=== PATIENT | female | born 1970 | race Caucasian/White ===

== ENCOUNTER 2020-11-24 10:01 | Outpatient (CLI) | payer MEDICARE, SELFPAY ==
--- NOTE | 2020-11-24 10:09 | MM_ITS ---
WS: [id number] SCREENING DIGITAL MAMMOGRAM WITH CAD HISTORY: SCREENING COMPARISON: 09/10/2012 Bilateral CC and MLO views submitted. Computer aided detection analyzed. Breast composition: There are scattered areas of fibroglandular density. Tiny spicule a 6 mm nodule i n the central RIGHT breast at a middle depth. Margins are slightly irregular. This is new since the p rior study. Otherwise no suspicious masses or calcifications. MM/[place] [id number] IMPRESSION: BI-RADS: 0-Incomplete: Need additional imaging evaluation FOLLOW UP: Need Additional Imaging RIGHT breast: Spot compression views (CC and MLO). True ML. Ultrasound to follo w if abnormality persists.
== END 2020-11-24 10:02 | disposition home or self-care (01) ==
LOC: RADSHAW 10:07
PROVIDERS: PCP Internal Medicine; Visit Provider Internal Medicine
DX: Z12.31 Encounter for screening mammogram for malignant neoplasm of breast (principal)
CPT/HCPCS: 77067

== ENCOUNTER 2021-01-19 07:43 | Outpatient (CLI) | payer MEDICARE, SELFPAY ==
--- NOTE | 2021-01-19 07:50 | US_ITS ---
WS: [id number] ADDITIONAL VIEWS RIGHT BREAST RIGHT breast ultrasound, limited HISTORY: INCONCLUSIVE MAMMO;RT NODULE COMPARISON: 11/24/2020 and 09/10/2012 Compression views right CC and MLO projection. True ML also submitted. The asymmetry posterior to the nipple seen best on the CC projection persists but nearly completely resolves. This is not definitel y visualized on the lateral projection but probably at 12:00. Ultrasound to follow. RIGHT breast ultrasound, limited. Ultrasound is directed along with midline of the breast above and below the nipple. No masses are antonella ntified. No shadowing. US/US breast RT limited* [id number] IMPRESSION: BI-RADS: 2-Benign FOLLOW-UP: 1 Year Follow-up Asymmetry posterior to the nipple does not persist as a mass. No abnormality on ultrasound.
== END 2021-01-19 07:44 | disposition home or self-care (01) ==
LOC: RADSHAW 07:45
PROVIDERS: PCP Internal Medicine; Visit Provider Internal Medicine
DX: R92.2 Inconclusive mammogram (principal); N64.89 Other specified disorders of breast
CPT/HCPCS: 76642; 77065

== ENCOUNTER 2021-03-06 14:44 | Outpatient (CLI) | payer MEDICARE, SELFPAY ==
--- NOTE | 2021-03-06 15:15 | MR_ITS ---
WS: [id number] MRI RIGHT SHOULDER NONCONTRAST TECHNIQUE: Sagittal T2, coronal T1, T2 and proton density imaging. Axial gradient PDE imaging. CLINICAL INFORMATION: INTERNAL DERANGEMENT OF R SHOULDER COMPARISON: None. FINDINGS: Moderate degenerative arthritis AC joint with hypertrophic spurring and edema. Mild downsloping acrom ion. Small amount of subacromial/subdeltoid fluid. Small high-grade tear involving the distal suprasp inatus with an additional tear at the insertion. No tendon retraction. Chronic thinning of the distal supraspinatus tendon. Associated tendinopathy. Tiny intrasubstance tear involving the infraspinatus. Normal teres minor. Normal subscapularis tendon . Normal biceps tendon in the bicipital groove. Tendinopathy involving the intra-articular biceps tendo n with T2 signal abnormality. Glenoid labrum appears grossly normal. Normal bone marrow signal in the humerus and glenoid. MR/MR shoulder RT wo con* [id number] IMPRESSION: 1. Moderate degenerative arthritis at the AC joint with hypertrophic spurring and edema. 2. Small high-grade tear involving the distal supraspinatus with tendinopathy and chronic thinning of the supraspinatus tendon distally. 3. Small intrasubstance tear involving the infraspinatus tendon distally. 4. Normal biceps tendon in the bicipital groove. 5. Tendinopathy intra-articular biceps tendon. 6. Glenoid labrum appears grossly normal.
== END 2021-03-06 14:45 | disposition home or self-care (01) ==
PROVIDERS: PCP Internal Medicine; Visit Provider Internal Medicine
DX: M24.811 Other specific joint derangements of right shoulder, not elsewhere classified (principal); M19.011 Primary osteoarthritis, right shoulder; M75.101 Unspecified rotator cuff tear or rupture of right shoulder, not specified as traumatic; S46.811A Strain of other muscles, fascia and tendons at shoulder and upper arm level, right arm, initial encounter; X58.XXXA Exposure to other specified factors, initial encounter
CPT/HCPCS: 73221

== ENCOUNTER → 2021-12-27 09:48 | Outpatient (BNVA) | payer MEDICARE, SELFPAY | PROVIDERS: PCP Internal Medicine; Referring Provider Internal Medicine; Visit Provider Internal Medicine Cardiovascular Disease | DX: R07.9 Chest pain, unspecified (principal); I10 Essential (primary) hypertension; Z87.891 Personal history of nicotine dependence | CPT/HCPCS: 93005; 99203; 99204 ==

== ENCOUNTER 2022-01-02 07:24 | Outpatient (CLI) | payer MEDICARE, SELFPAY ==
--- NOTE | 2022-01-02 | ECG_ITS ---
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 Interpretive Statements NAME OF STUDY: EXERCISE SESTAMIBI STRESS TEST INDICATION: Chest Pain Baseline blood pressure of 119/77 mm Hg, heart rate 77 beats per minute and oxygen saturation of 98%. EKG showed normal sinus rhythm, normal axis with normal ST-Ts. The patient exercised for 3 minutes 30 seconds on a standard Johnson protocol. Patient attained a maximum heart rate of 151 beats per minute(89% of the maximum predicted heart rate) with a blood pressure at the peak exercise of 154/62 mm Hg and oxygen saturation of 80%. The EKG at the peak exercise revealed sinus tachycardia with no significant ST-T wave changes. Patient did not have any chest pain or any significant arrhythmis with the exercise. The study was terminated due to exertional shortness of breath. During the recovery phase, there were no new changes. Blood pressure at the end of the recovery phase was 162/79 mm Hg with a heart rate of 108 beats per minute and oxygen saturation 94%. CONCLUSION: 1. Normal EKG response to treadmill exercise. 2. No exercise-induced chest pain or cardiac arrhythmia. 3. Decreased exercise tolerance, attained a maximum of 4.6 METs. Patient exercised for 3 minutes 30 seconds. 4. Baseline normal blood pressure with normal response to exercise. Oxygen saturation at peak exercise of 80%. 5. Perfusion scan will be documented separately. Electronically Signed On 01-05-2022 14:24:10 CDT by Thalia Rios M.D. [id number]
[2022-01-02 07:55] VITALS: BMI 37.8
--- NOTE | 2022-01-02 07:59 | NMCV_ITS ---
NM ching perf SPECT r/s* [id number] Netta Keene Age: 51 Gender: F : 1970 Exam Date: 01/02/2022 07:59 Ordering Phys: Jean-Claude Harkins DO Technologist: BOB Orozco Exam Location: [facility] Indications: CHEST PAIN STRESS TEST [facility] IMAGE PROTOCOL Rest/Stress 1 Exercise Day Radiopharmaceutical Dose (mCi) Administration Site Administered by Rest: Tc-99m 10.6 IV BOB Massey Sestamibi Stress:Tc-99m 33.0 IV BOB Massey Sestamibi Rest: 02-Jan-2022 60 Discovery 630 Stress: 02-Jan-2022 15 Discovery 630 Radiopharmaceutical was injected at 85 % maximum heart rate. Supine position only as patient was unable to lay prone. SPECT RESULTS Technical Quality: Excellent Raw Data Analysis: Normal Image Corrections: No attenuation or motion correction applied Summed Stress Score: 0 Summed Rest Score: 2 Summed Difference Score: 0 PERFUSION FINDINGS SPECT images demonstrate homogeneous tracer distribution throughout the myocardium. FUNCTIONAL RESULTS (calculated via Gated SPECT) Stress Image LV EF (%): 96 Stress EDV (mL):52 TID: 0.89 Stress ESV (mL):2 FUNCTIONAL FINDINGS: The left ventricle is normal in size. Transient Ischemia Dilatation of 0.89. The left ventricular ejection fraction is hyperdynamic with a value of 96% (likely overestimated due to small left ventricle cavity size). There is hyperdynamic left ventricular wall thickening. IMPRESSIONS 1. Myocardial perfusion imaging is normal. 2. Overall left ventricular systolic function is hyperdynamic without regional wall motion abnormalities, LVEF=96%. 3. Decreased exercise tolerance. Normal EKG response to treadmill exercise. 4. No prior similar studies to compare. Thalia Rios MD (Electronically Signed) Final Date: 05 January 2022 14:27 S
[2022-01-02 10:37] VITALS: BP 125/65; PULSE 83
== END 2022-01-02 07:25 | disposition home or self-care (01) ==
PROVIDERS: PCP Internal Medicine; Visit Provider Internal Medicine
DX: R07.9 Chest pain, unspecified (principal)
CPT/HCPCS: 78452; 93017; A9500

== ENCOUNTER 2022-02-14 12:38 | Emergency (ER) | payer MEDICARE, SELFPAY ==
[2022-02-14] VITALS (27 sets, daily range): BP systolic 104–145; BP diastolic 61–84; PULSE 75–101; RESP 12–29; TEMP 36.3; O2SAT 90–96; BMI 37.8
--- NOTE | 2022-02-14 12:46 | ECG_ITS ---
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 Measurements Intervals [place] Rate: 97 P: 48 TN: 145 QRS: 15 QRSD: 73 T: 73 QT: 338 QTc: 431 Interpretive Statements SINUS RHYTHM LOW QRS VOLTAGE IN PRECORDIAL LEADS [QRS DEFLECTION < 1.0 mV IN CHEST LEADS] Compared to ECG 05/09/2018 07:36:41 Low QRS voltage now present Electronically Signed On 02-14-2022 18:04:18 CAD DETAILER by Oscar Tapia M.D. [id number] f
--- NOTE | 2022-02-14 13:41 | PC.NURSE ---
pt reports she thinks that she had a heart attack. states she had a sharp pain that radiated to her neck. states yesterday began having heartburn, today had a stabbing pain that began while wrapping [facility] presents. reports she took a nitro at home that relieved her pain.
--- NOTE | 2022-02-14 13:47 | ED_ITS ---
HPI - Chest Pain General: Chief Complaint: Chest Pain Stated Complaint: heart issues Time Seen by Provider: 02/14/22 13:39 History of Present Illness: 51-year-old female who comes in complaining of chest pain. The patient started having this off and on yesterday and then again had recurrent pain today. She describes it as a sharp pain in her midsternal area radiating up into her jaw. She states it was an 8 out of a 10 at its worst. The pain most recently came on around 1145 today. It lasted about 20 minutes and was relieved after she took a sublingual nitroglycerin. She denies pain currently. She states it did not cause her to feel short of breath, nauseated or diaphoretic. She does have a history of hypertension as well as a family history of cardiac disease. She is a non-smoker. She does stress test recently that was normal. She is also been having nominal pain. She recently had an ultrasound to evaluate that. She did try Tagamet yesterday without improvement Associated symptoms: Reports abdominal pain and nausea; Deny diaphoresis, dyspnea, fever(s), palpitations or vomiting Risk Factors: Coronary artery disease risk factors: hypertension and family history of CAD before age 50 Review of Systems Const: Denies: fever(s), chills, body aches or diaphoresis Eyes: Denies: change in vision ENMT: Denies: throat pain or nasal congestion Card: Reports: chest pain; Denies: palpitations, dyspnea on exertion, orthopnea or leg pain with exertion Resp: Denies: dyspnea or non-productive cough GI: Reports: abdominal pain and nausea; Denies: vomiting, hematemesis, diarrhea or constipation : Denies: difficulty voiding Musc: Denies: joint pain Skin/Breast: Denies: rash Neuro: Denies: headache(s) PFSH ED PFSH: Medical History (Updated 02/14/22 @ 16:27 by Cassy Hayden MD) Anxiety and depression Arthritis Fibromyalgia History of TIA (transient ischemic attack) HTN (hypertension) Surgical History S/P carpal tunnel release S/P hysterectomy S/P rotator cuff surgery Family History Mother Hypertension Myocardial infarction Diabetes Father Hypertension Stroke Sister Diabetes Social History Smoking and tobacco status: former smoker Physical Exam Const: COMMON NORMALS: no acute distress, patient oriented x3 and alert HENMT: COMMON NORMALS: normocephalic, atraumatic and moist oral mucous membranes HEAD & SCALP: normocephalic and atraumatic Eye: COMMON NORMALS: conjunctivae normal CONJUNCTIVA: Yes conjunctivae normal Neck/C-Spine: GENERAL: Yes trachea midline and No Meningeal signs present Resp: COMMON NORMALS: normal respiratory effort, No use of accessory muscles and clear to auscultation bilaterally AUSCULTATION: clear to auscultation bilaterally Cardio: COMMON NORMALS: regular rate and regular rhythm RATE: regular rate RHYTHM: regular rhythm GI: COMMON NORMALS: Normal to inspection, nondistended, normoactive bowel sounds present, Soft to palpation, non-tender and No hepatosplenomegaly present PALPATION: Yes Soft to palpation and Yes No hepatosplenomegaly present Extremity: OTHER: No edema, calves are nontender. Neuro: COMMON NORMALS: patient oriented x3 SENSORIUM/ORIENTATION: Yes alert Skin: OTHER: No rash Course ED course: Patient's been evaluated in the emergency department. She presents with chest pain, now resolved upon arrival to the ER. She had a recent negative stress test. Her EKG today is normal. Serial troponins are both normal at 6. D-dimer is negative. Her chest x-ray is unremarkable. I suspect the patient is having esophageal reflux with esophageal spasm. I do not feel that this is likely cardiac. We will place the patient on a PPI daily. Recommend she takes Prilosec daily. If given her dietary instructions. Instructed her to follow-up with her primary care doctor's nonapproved in the next 1 to 2 weeks. Vital Signs: Vital signs: Vital Signs Temperature 97.3 F L 02/14/22 12:41 Pulse Rate 82 02/14/22 15:50 Respiratory Rate 19 H 02/14/22 15:50 Blood Pressure 121/61 02/14/22 15:50 Pulse Oximetry 93 02/14/22 15:50 Oxygen Delivery Me thod 02/14/22 12:41 MDM - Chest Pain Medical Decision Making 51-year-old female with history of hypertension who presents with chest pain that she has had most of the day today. Notably, the patient had a negative stress test about 6 weeks ago. We will obtain an EKG, chest x-ray and serial cardiac enzymes. Differential Diagnosis Likely acute respiratory failure and acute myocardial infarction Lab Data I reviewed the patient's lab results. 02/14/22 13:48 02/14/22 13:48 Radiology Impressions Chest X-Ray 02/14/22 13:49 IMPRESSION: No acute cardiopulmonary abnormality identified. Laboratory Results WBC 7.0 10^3/uL (4.0-10.0) 02/14/22 13:48 RBC 4.30 10^6/uL (4.1-5.3) 02/14/22 13:48 Hgb 14.5 g/dL (11.5-15.3) 02/14/22 13:48 Hct 42.9 % (37.0-47.0) 02/14/22 13:48 MCV 99.8 fl (81-99) H 02/14/22 13:48 MCH 33.7 pg (28.0-34.0) 02/14/22 13:48 MCHC 33.8 g/dL (30.0-36.0) 02/14/22 13:48 RDW 12.3 % (12.1-15.1) 02/14/22 13:48 Plt Count 341 10^3/cmm (130-400) 02/14/22 13:48 MPV 9.0 fL (7.4-10.4) 02/14/22 13:48 Neut % (Auto) 56.6 % 02/14/22 13:48 Lymph % (Auto) 29.5 % 02/14/22 13:48 [place] % (Auto) 7.2 % 02/14/22 13:48 Eos % (Auto) 5.3 % 02/14/22 13:48 Baso % (Auto) 1.1 % 02/14/22 13:48 Neut # (Auto) 3.94 10^3/uL (1.8-7.7) 02/14/22 13:48 Lymph # (Auto) 2.1 10^3/uL (0.8-4.8) 02/14/22 13:48 [place] # (Auto) 0.5 10^3/uL (0.2-0.9) 02/14/22 13:48 Eos # (Auto) 0.4 10^3/uL (0.0-0.8) 02/14/22 13:48 Baso # (Auto) 0.1 10^3/uL (0.0-0.1) 02/14/22 13:48 Nucleated RBC % (auto) 0 % 02/14/22 13:48 Nucleated RBCs # 0.0 /100WBC 02/14/22 13:48 D-Dimer 0.32 ug/mIFEU (0-0.59) 02/14/22 13:48 Sodium 138 mmol/L (136-145) 02/14/22 13:48 Potassium 4.3 mmol/L (3.5-5.1) 02/14/22 13:48 Chloride 103 mmol/L (98-107) 02/14/22 13:48 Carbon Dioxide 26 mmol/L (22-29) 02/14/22 13:48 Anion Gap 13.3 (5-19) 02/14/22 13:48 BUN 8 mg/dL (6-20) 02/14/22 13:48 Creatinine 1.0 mg/dL (0.5-0.9) H 02/14/22 13:48 GFR Calculation 58.5 mL/min (90-130) L 02/14/22 13:48 Glucose 105 mg/dL (65-115) 02/14/22 13:48 Calculated Osmolality 285 mOsm/kg (285-295) 02/14/22 13:48 Calcium 9.7 mg/dL (8.5-10.5) 02/14/22 13:48 Total Bilirubin 0.3 mg/dL (0.15-1.2) 02/14/22 13:48 AST 25 U/L (0-32) 02/14/22 13:48 ALT 28 U/L (0-33) 02/14/22 13:48 Alkaline Phosphatase 87 U/L (35-105) 02/14/22 13:48 Troponin T Baseline 6 ng/L (0-10) 02/14/22 13:48 Troponin T 120 Minute 6.00 ng/L (0-10) 02/14/22 15:25 Delta Troponin T 0 ABS# (0-10) 02/14/22 15:25 Total Protein 7.4 g/dL (6.6-8.7) 02/14/22 13:48 Albumin 4.5 g/dL (3.5-5.2) 02/14/22 13:48 Globulin 2.9 g/dL (1.3-4.6) 02/14/22 13:48 Discharge Plan Discharge Patient Disposition: Home Clinical Impression: Chest pain, Esophageal reflux Condition: Stable Prescriptions: No Action amitriptyline 50 mg tablet 50 mg PO DAILY albuterol sulfate [Ventolin HFA] 90 mcg/actuation HFA aerosol inhaler 2 puff inhalation Q6H PRN gabapentin 300 mg capsule 300 mg PO BID losartan 50 mg tablet 50 mg PO DAILY sertraline 50 mg tablet 50 mg PO DAILY diphenhydramine HCl [Benadryl Allergy] 25 mg tablet 25 mg PO TID PRN chlorthalidone 25 mg tablet 37.5 mg PO DAILY Qty: 45 6RF Discharge Orders: Discharge ED (Routine); Ordered 02/14/22 Ordered By: Cassy Hayden Referrals: Jean-Claude Harkins DO [Primary Care Provider] - Discharge Diet: Advance as tolerated Discharge Activity: Resume usual activity Patient Instructions: Chest Pain (DC), Esophageal Spasm (ED), Opioid Safety, Pain Management Activity Restrictions/Additional Instructions: Take Prilosec daily. Do not eat or drink for at least 2 hours before you lay down to go to bed. Elevate the head of your bed. Avoid carbonated beverages. Avoid caffeine, greasy foods, spicy foods, aspirin, ibuprofen. Return if you are having increased pain. Follow-up with your primary care doctor in the next 1 to 2 weeks. Coding Level of Care Code ED Certified Shorthand Reporter for Heydi Kaur
--- NOTE | 2022-02-14 13:49 | XRR_ITS ---
PROCEDURE INFORMATION: Exam: XR Chest Exam date and time: 02/14/2022 1:55 PM Age: 51 years old Clinical indication: Pain; Angina pectoris; Additional info: Chest pain TECHNIQUE: Imaging protocol: Radiologic exam of the chest. Views: 1 view. Other technique: Frontal portable upright view of the chest. COMPARISON: CR XR chest 2V* [id number] 10/30/2021 4:06 PM FINDINGS: Tubes, catheters and devices: EKG leads are present overlying the chest. Lungs: The lungs are clear bilaterally. The pulmonary vasculature is normal. Pleural spaces: No pleural effusion. No pneumothorax. Heart/Mediastinum: The heart is normal in size and contour. Mediastinum: Stable. Bones/joints: Stable. XR/XR chest 1V portable [id number] IMPRESSION: No acute cardiopulmonary abnormality identified.
[2022-02-14 13:57] LABS: Basophils # 0.1 10^3/uL (0.0-0.1); Basophils % 1.1 %; Eosinophils # 0.4 10^3/uL (0.0-0.8); Eosinophils % 5.3 %; Hematocrit 42.9 % (37.0-47.0); Hemoglobin 14.5 g/dL (11.5-15.3); Lymphocytes # 2.1 10^3/uL (0.8-4.8); Lymphocytes % 29.5 %; Mean Corpuscular HGB Conc 33.8 g/dL (30.0-36.0); Mean Corpuscular Hemoglobin 33.7 pg (28.0-34.0); Mean Corpuscular Volume 99.8 fl (81-99); Monocytes # 0.5 10^3/uL (0.2-0.9); Monocytes % 7.2 %; Neutrophils # 3.94 10^3/uL (1.8-7.7); Neutrophils % 56.6 %; Nucleated Red Blood Cells % 0 %; Platelet Count 341 10^3/cmm (130-400); Red Cell Distribution Width 12.3 % (12.1-15.1)
[2022-02-14] MEDS: aspirin 81 mg Chew Tablet 324 MG PO (14:00)
[2022-02-14] MEDS: nitroglycerin 1 gm/inch oint Pkt 1 INCH TOPICAL (14:00)
[2022-02-14 14:18] LABS: D Dimer 0.32 ug/mIFEU (0-0.59)
[2022-02-14 14:20] LABS: Troponin(5th) Baseline 6 ng/L (0-10)
[2022-02-14 14:22] LABS: Alanine Aminotransferase 28 U/L (0-33); Albumin Level 4.5 g/dL (3.5-5.2); Alkaline Phosphatase 87 U/L (35-105); Anion Gap 13.3 (5-19); Aspartate Amino Transferase 25 U/L (0-32); Blood Urea Nitrogen 8 mg/dL (6-20); Calcium 9.7 mg/dL (8.5-10.5); Carbon Dioxide 26 mmol/L (22-29); Chloride 103 mmol/L (98-107); Globulin 2.9 g/dL (1.3-4.6); Glomerular Filtration Rate 58.5 mL/min (90-130); Glucose 105 mg/dL (65-115); Osmolality Calculated 285 mOsm/kg (285-295); Potassium 4.3 mmol/L (3.5-5.1); Sodium 138 mmol/L (136-145); Total Bilirubin 0.3 mg/dL (0.15-1.2); Total Protein 7.4 g/dL (6.6-8.7)
--- NOTE | 2022-02-14 15:49 | ECG_ITS ---
[facility] Test Date: 2022-02-14 Pat Name: Netta Keene Department: Room: Gender: Female Studio Model: : 1970 Requested By: Cassy Hayden Order Number: [id number] Yair MD: Oscar Tapia M.D. Measurements Intervals [place] Rate: 76 P: 49 WI: 163 QRS: 18 QRSD: 64 T: 88 QT: 370 QTc: 418 Interpretive Statements SINUS RHYTHM NONSPECIFIC T-WAVE ABNORMALITY Compared to ECG 02/14/2022 12:45:34 T-wave abnormality now present Electronically Signed On 02-14-2022 18:05:56 MACHINE CUTTER by Oscar Tapia M.D. [email or web address] [email or web address] Photo Stories/store/[id number]
[2022-02-14 16:10] LABS: Troponin 5 2HR Delta 0 ABS# (0-10)
== END 2022-02-14 16:44 | disposition home or self-care (01) ==
PROVIDERS: Emergency Provider Emergency Medicine; PCP Internal Medicine
DX: R07.9 Chest pain, unspecified (principal); K21.9 Gastro-esophageal reflux disease without esophagitis; I10 Essential (primary) hypertension; Z86.73 Personal history of transient ischemic attack (TIA), and cerebral infarction without residual deficits; Z87.891 Personal history of nicotine dependence
CPT/HCPCS: 36415; 71045; 80053; 84484; 85025; 85378; 93005; 99285

== ENCOUNTER → 2022-04-10 10:19 | Outpatient (BNVA) | payer OTHER, SELFPAY | PROVIDERS: PCP Internal Medicine; Visit Provider Anesthesiology Pain Medicine | DX: M54.16 Radiculopathy, lumbar region (principal) | CPT/HCPCS: 72110 ==

== ENCOUNTER 2024-08-29 20:07 | Inpatient (IN) | payer MEDICARE, SELFPAY ==
--- NOTE | 2024-08-29 20:10 | ECG_ITS ---
[facility] Test Date: 2024-08-29 Pat Name: Netta Keene Department: Room: Gender: Female Superintendent Production: : 1970 Requested By: Heather Almaguer Order Number: [id number] Mazariegos MD: Tk Guillen M.D. Measurements Intervals [place] Rate: 125 P: 59 GA: 143 QRS: 17 QRSD: 76 T: 69 QT: 296 QTc: 428 Interpretive Statements SINUS TACHYCARDIA ABNORMAL RHYTHM ECG Compared to ECG 02/14/2022 15:59:59 Sinus rhythm no longer present T-wave abnormality no longer present Electronically Signed On 08-30-2024 21:37:48 CDT by Tk Guillen M.D. [id number] [id number]
--- NOTE | 2024-08-29 20:13 | ED.C_ITS ---
HPI - Psych 2 General: Chief Complaint: Psychiatric Symptoms Stated Complaint: 96 Time Seen by Provider: 08/29/24 20:10 History of Present Illness: 54-year-old female who presents emergenc y room with police after she had made suicidal comments. Police report that she had texted to family that she was going to shoot herself. She did have a gun. Family had ended up getting the gun. She had texted that they can just cremate her body. She had then said that she could not do it because she was Religious and she had kids. When she arrives here she is talking about how she is tired of arguing with her and that she does not need to come into the psychiatric unit. Related Data Home Medications ?Medication ?Instructions ?Recorded ?Confirmed albuterol sulfate 90 mcg/actuation 2 puff inhalation Q 6H PRN 12/27/21 08/26/23 aerosol inhaler (Ventolin HFA) amitriptyline 50 mg tablet 50 mg PO DAILY 12/27/2101/08 diphenhydramine HCl 25 mg tablet 25 mg PO TID PRN 12/1608/26/23 (Benadryl Allergy) gabapentin 300 mg capsule 300 mg PO BID 12/27/2108/25 losartan 50 mg tablet 50 mg PO DAILY 12/27/2108/16 sertraline 50 mg tablet 50 mg PO DAILY 12/27/2108/16 Previous Rx's ?Medication ?Instructions ?Recorded tizanidine 4 mg tablet 4 mg PO BID PRN muscle spast icity 05/15/22 #60 tabs sucralfate 1 gram tablet (Carafate) 1 g PO BID #30 tab s 08/26/23 Allergies Allergy/AdvReac Type Severity Reaction Status Date / Time codeine Allergy Unknown unknown Verified 08/26/23 15:58 Sulfa (Sulfonamide Allergy Unknown unknown Verified 08/26/23 15:58 Antibiotics) Review of Systems 2 Narrative: Constitutional symptoms: Negative except as documented in HPI. Skin symptoms: Negative except as documented in HPI. Eye symptoms: Negative except as documented in HPI. ENMT symptoms: Negative except as documented in HPI. Respiratory symptoms: Negative except as documented in HPI. Cardiovascular symptoms: Negative except as documented in HPI. Gastrointestinal symptoms: Negative except as documented in HPI. Genitourinary symptoms: Negative except as documented in HPI. Musculoskeletal symptoms: Negative except as documented in HPI. Neurologic symptoms: Negative except as documented in HPI. Psychiatric symptoms: Negative except as documented in HPI. Endocrine symptoms: Negative except as documented in HPI. PFSH ED 2 PFSH: Medical History HTN (hypertension) Anxiety and depression Arthritis Fibromyalgia History of TIA (transient ischemic attack) Surgical History S/P carpal tunnel release S/P hysterectomy S/P rotator cuff surgery Family History Mother Hypertension Myocardial infarction Diabetes Father Hypertension Stroke Sister Diabetes Social History Smoking and tobacco/nicotine status: former use of tobacco/nicotine Physical Exam 2 Narrative: EXAM NARRATIVE: General: Alert, no acute distress. Skin: Warm, dry. Head: Normocephalic, atraumatic. Neck: Supple, trachea midline. Eye: Extraocular movements are intact. Ears, nose, mouth and throat: mucosa moist. Cardiovascular: Regular, Normal peripheral perfusion. Respiratory: Lungs are clear to auscultation, respirations are non-labored, breath sounds are equal, Symmetrical chest wall expansion. Gastrointestinal: Soft, Nontender, Non distended Musculoskeletal: Normal ROM, no deformity. Neurological: Alert and oriented, No focal neurological deficit observed. Psychiatric: Cooperative, currently denying suicidal thoughts Course 2 Vital Signs: Vital signs: Vital Signs Temperature 98.3 F 08/29/24 20:19 Pulse Rate 86 08/29/24 20:19 Respiratory Rate 16 08/29/24 20:19 Blood Pressure 145/83 08/29/24 20:19 Pulse Oximetry 96 08/29/24 20:19 Oxygen Delivery Me thod Room Air 08/29/24 20:19 MDM - Psych Medical Decision Making Differential diagnosis: Patient with reported depression and suicidal ideation. concerns for infection, alcohol intoxication, cardiac issues or other medical problems prior to psychiatric admission. Workup: labwork, ekg ordered to evaluate the pathologies and to clear the patient medically prior to psychiatric admission EKG: Time 2011. Rate 125. Sinus tachycardia, No ST-T changes, no ectopy, normal ME & QRS intervals, This was reviewed and interpreted by myself the ER physician at 2014 Assessment and plan: Suicidal ideation ?96-hour hold placed. -Admission to neuropsychiatric unit for continued evaluation and treatment. - All lab work was reviewed and interpreted personally by myself, the ER physician - Evaluation and treatment of this problem were appropriate in the emergency setting Lab Data 08/29/24 20:25 08/29/24 20:25 Laboratory Results WBC 12.55 10^3/uL (3.29-11.43) H 08/29/24 20:25 RBC 4.75 10^6/uL (3.85-5.65) 08/29/24 20: Hgb 15.20 g/dL (11.27-16.99) 08/29/24 20: Hct 44.8 % (36-47) 08/29/24: MCV 94.3 fl (85-98) 08/29/24: MCH 32.0 pg (27-33) 08/29/24: MCHC 33.9 g/dL (30-55) 08/29/24 20:25 RDW 12.3 % (12.1-15.1) 08/29/24: Plt Count 410 10^3/cmm (157-399) H 08/29/24 20:25 MPV 9.4 fL (7.4-10.4) 08/29/24 20:25 Neut % (Auto) 71.4 % 08/29/24 20:25 Lymph % (Auto) 21.0 % 08/29/24: [place] % (Auto) 4.6 % 08/29/24 20:25 Eos % (Auto) 2.2 % 08/29/24:25 Baso % (Auto) 0.6 % 08/29/24:25 Neut # (Auto) 8.95 10^3/uL (1.8-7.7) H 08/29/24 20:25 Lymph # (Auto) 2.6 10^3/uL (0.8-4.8) 08/29/24 20:25 [place] # (Auto) 0.6 10^3/uL (0.2-0.9) 08/29/24 20:25 Eos # (Auto) 0.3 10^3/uL (0.0-0.8) 08/29/24 20:25 Baso # (Auto) 0.1 10^3/uL (0.0-0.1) 08/29/24 20:25 Nucleated RBC % (auto) 0 % 08/29/24 20:25 Nucleated RBCs # 0.0 /100WBC 08/29/24 20:25 No radiology studies performed this visit Discharge Plan Discharge Patient Disposition: Admitted As Inpatient Clinical Impression: Suicidal ideation Condition: Stable Coding Level of Care Code ED Wolf Hunter for Heydi Kaur
[2024-08-29 20:19] VITALS: BP 145/83; PULSE 86; RESP 16; TEMP 36.8; O2SAT 96
[2024-08-29 20:30] LABS: Basophils # 0.1 10^3/uL (0.0-0.1); Basophils % 0.6 %; Eosinophils # 0.3 10^3/uL (0.0-0.8); Eosinophils % 2.2 %; Hematocrit 44.8 % (36-47); Lymphocytes # 2.6 10^3/uL (0.8-4.8); Mean Corpuscular HGB Conc 33.9 g/dL (30-55); Mean Corpuscular Volume 94.3 fl (85-98); Mean Platelet Volume 9.4 fL (7.4-10.4); Monocytes # 0.6 10^3/uL (0.2-0.9); Monocytes % 4.6 %; Neutrophils # 8.95 10^3/uL (1.8-7.7); Neutrophils % 71.4 %; Nucleated Red Blood Cells % 0 %; Platelet Count 410 10^3/cmm (157-399); Red Blood Count 4.75 10^6/uL (3.85-5.65); Red Cell Distribution Width 12.3 % (12.1-15.1); White Blood Count 12.55 10^3/uL (3.29-11.43)
[2024-08-29 20:59] LABS: Alanine Aminotransferase 16 U/L (0-33); Albumin Level 4.2 g/dL (3.5-5.2); Alkaline Phosphatase 86 U/L (35-105); Anion Gap 19.6 (5-19); Aspartate Amino Transferase 21 U/L (0-32); Blood Urea Nitrogen 9 mg/dL (6-20); Calcium 9.4 mg/dL (8.5-10.5); Carbon Dioxide 20 mmol/L (22-29); Chloride 101 mmol/L (98-107); Globulin 3.1 g/dL (1.3-4.6); Glomerular Filtration Rate 65.2 mL/min (90-130); Glucose 138 mg/dL (65-115); Osmolality Calculated 285 mOsm/kg (285-295); Potassium 3.6 mmol/L (3.5-5.1); Sodium 137 mmol/L (136-145); Thyroid Stimulating Hormone 1.63 uIU/mL (0.27-4.20); Total Bilirubin 0.3 mg/dL (0.15-1.2); Total Protein 7.3 g/dL (6.6-8.7)
[2024-08-29 21:01] LABS: Acetaminophen < 5.0 ug/mL (10-30); Alcohol Level < 10 mg/dL (0-10); Salicylate < 0.3 mg/dL (3-10)
[2024-08-29] MEDS: acetaminophen 500 mg Tablet 1000 MG PO (21:39)
[2024-08-29 21:41] LABS: HCG Qualitative Urine. Negative (Negative)
[2024-08-29 21:51] VITALS: BP 149/90; PULSE 91; RESP 16; O2SAT 97
[2024-08-29 21:52] VITALS: BP 156/87; PULSE 118; RESP 20; TEMP 36.6; O2SAT 98
[2024-08-29 22:00] VITALS: BP 156/87; PULSE 118; RESP 20; TEMP 36.6; O2SAT 98
--- NOTE | 2024-08-29 23:03 | PC.NURSE ---
Pt was read her 96 hour hold rights at 2044 with security present.
[2024-08-29 23:27] VITALS: BP 156/87
[2024-08-29] MEDS: losartan 50 mg Tablet PO (23:27)
--- NOTE | 2024-08-29 23:56 | PC.ADMIT ---
[address] Admission Note: The patient,Netta Keene,54 y/o, was given written information regarding hospital policies, unit procedures and contact persons. Patient's smoking status: former smoker. Vital Signs - 8 hr 08/29/24 20:19 08/29/24 21:51 08/29/24 21:52 Temperature 98.3 F 97.8 F Pulse Rate 86 91 118 H Respiratory Rate 16 16 20 H Blood Pressure 145/83 149/90 156/87 Pulse Oximetry 96 97 98 Oxygen Delivery Method Room Air Room Air 08/29/24 21:56 08/29/24 22:00 08/29/24 23:27 Temperature 97.8 F Pulse Rate 118 H Respiratory Rate 20 H Blood Pressure 156/87 156/87 Pulse Oximetry 98 Oxygen Delivery Method Room Air Room Air 54 y/o female presents to NPU after admission through ER for family and police report of patient verbalized SI with a plan to shoot herself. She verbalized that her and her had been arguing all day. Patient has a past psychiatric history of depression and PMH of hypertension, reflux, asthma and PSH recent right shoulder repair. She denies family psychiatric history. Patient is a good historian. Her thoughts are linear. Her speech is clear. Affect is sad but appropriate to situation. She maintains good eye contact. She Denies SI/HI, AVH, Anxiety and Depression. She endorses occasional alcohol use and uses THC gummies to help with sleep. 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 She reports a fall yesterday on her farm where she slipped on some tucker and hurt her right lateral hip. Hip is without signs of injury. [ End ]
[2024-08-30 06:00] VITALS: BP 127/84; PULSE 83; RESP 18; TEMP 36.4; O2SAT 95; BMI 28.3
[2024-08-30 07:57] VITALS: BP 127/84
[2024-08-30] MEDS: gabapentin 300 mg Capsule PO ×2 (07:57→17:34)
[2024-08-30] MEDS: hyDROXYzine 25 mg Capsule 50 MG PO (07:57)
[2024-08-30] MEDS: losartan 50 mg Tablet PO (07:57)
[2024-08-30] MEDS: sertraline 50 mg Tablet PO (07:57)
[2024-08-30] MEDS: pantoprazole DR 40 mg Tablet PO (08:01)
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
[2024-08-30 13:20] LABS: Bilirubin Urine Negative (Negative); Blood Urine Negative (Negative); Glucose Urine UA Negative (Normal); Ketones Urine 1+ (Negative); Leukocyte Esterase Urine Negative (Negative); Nitrate Urine Negative (Negative); Protein Urine Negative (Negative); Specific Gravity, Urine 1.007 (1.005-1.030); Urine Appearance Clear (CLEAR); Urine Color Yellow (Yellow); pH Urine 6.5 (5-7)
[2024-08-30 13:26] LABS: Add Urine Microscopic? YES; Bacteria Urine None Seen /hpf; Hyaline Casts Urine 0-4 /lpf; RBC Urine 0-2 /hpf (0-2); Squamous Epithelial Cell Urine 0-5 /hpf (0-5); WBC Urine 0-5 /hpf (0-5)
[2024-08-30 13:36] LABS: Amphetamines Screen Urine Negative (Negative); Barbiturates Screen Urine Negative (Negative); Benzodiazepines Screen Urine Negative (Negative); Cocaine Screen Urine Negative (Negative); Opiate Screen Urine Negative (Negative); PCP Screen Urine Negative (Negative); THC Screen Urine Positive (Negative)
[2024-08-30 14:00] VITALS: BP 132/85; PULSE 104; RESP 18; TEMP 36.8; O2SAT 97
[2024-08-30 20:28] VITALS: BP 127/84; PULSE 112; RESP 18; TEMP 36.8; O2SAT 98
[2024-08-31 06:00] VITALS: BP 128/84; PULSE 93; RESP 16; TEMP 36.7; O2SAT 99
[2024-08-31] MEDS: ondansetron 4 MG Tablet PO (10:12)
[2024-08-31] MEDS: hyDROXYzine 25 mg Capsule 50 MG PO (12:22)
[2024-08-31] MEDS: pantoprazole DR 40 mg Tablet PO (12:22)
[2024-08-31] MEDS: sertraline 50 mg Tablet PO (12:22)
[2024-08-31] MEDS: gabapentin 300 mg Capsule PO ×2 (12:22→17:15)
[2024-08-31] MEDS: losartan 50 mg Tablet PO (12:22)
[2024-08-31 14:00] VITALS: BP 116/77; PULSE 97; RESP 16; TEMP 36.6; O2SAT 96
--- NOTE | 2024-08-31 14:36 | P.NPUPN_ITS ---
Subjective NPU 2 Subjective: Patient presented today reporting that things were going all right in general. She reports that her did not visit because he is working out of town. We discussed the social work team/treatment team contacting him to make sure that things are safe overall and that he does not have any significant concerns about suicidality. Also we needed to identify the location of the gun and make sure at least in the short-term that she has no access to firearms. She expressed significant frustration at not being discharged but ultimately excepted that the statements that she made required the team to do their due diligence. She denied any side effects to her medications but had been having medication refusal seemingly out of frustration about being capped. Mental Status Exam 2 MSE Comments: This is an overweight versus obese white female in hospital scrubs with adequate grooming and eye contact. No abnormal movements. Cooperative with exam in mild to moderate distress becoming tearful after she was advised she would not be discharging today. Speech was mostly normal rate and volume. Mood described as I get that I should not have said or done what I did but I promise I am safe to go home, affect congruent. Thought process organized. Thought content: Patient denies suicidal suicidal or homicidal ideations but she does admit to making a statement to her insinuating that she might end her life and then taking a gun to an undisclosed spot, there were no delusions reported or noted, she denied auditory or visual hallucinations. Denied current thoughts of self-harm or suicide, although a past incident involving a gun was discussed; she emphasized she would never harm herself, citing fear of unsuccessful attempts leading to disability. Denied any thoughts of harming others, visual hallucinations, delusions, or paranoia. Mentioned anxiety specifically related to her father's due to the decision to turn off life support. Denied feeling depressed, stating she has nothing to be depressed about. Described her mood as happy. Recent stressors include family conflicts, the loss of her cousin on Saturday, and the of her parents. Attention and concentration appeared intact and memory appeared intact but none were formally tested. She is alert and oriented x 3. Insight and judgment appear fair, impulse control is limited. Vitals/I&O/Wt Last Vital Signs Temp 98.1 F 08/31/24 06:00 Pulse 93 08/31/24 06:00 Resp 16 08/31/24 06:00 BP 128/84 08/31/24 06:00 Pulse Ox 99 08/31/24 06:00 O2 Del Method Room Air 08/31/24 06:00 Weight last 48 hrs Weight 68.039 kg Weight 68.039 kg Data NPU 08/29/24 20:25 08/29/24 20:25 A&P Assessment and plan (1) Anxiety and depression: (2) Suicidal ideation: (3) Partner relational problem: Plan This is a 54-year-old white female with no clear psychiatric history who presents with a UDS only significant for cannabis use who presents on a 96-hour hold reporting that she does not need to be here. Her 96-hour hold appears to be related to suicidal statements that she made which she is very much downplaying now but she may have gone as far as sending text messages and then taking a gun to an undisclosed area but she is very much downplaying the intensity of these events. 1. Continue current medication. 2. Continue every 15 minute checks for safety. 3. Encourage individual, group and milieu therapy. 4. Encourage sober living treatment after discharge to the highest level EDIL which she is willing to commit. 5. Obtain collateral information. 6. Evaluate for safety against the backdrop of the 96-hour hold. PDMP PDMP Reviewed: Not Reviewed Involuntary Hold Information 2 Hold Status: Legal Status: 96 Hour Hold Date/Time Hold Expires: 09/03/2024 @ 2018 Attestations NPU 2 Medical Necessity Statement*: Inpatient hospitalization is medically necessary and the clinically appropriate intervention at this time. We will monitor/initiate medication and make changes as indicated. Likely length of stay 1-3 days. Coding Level of Care Code Acute Code for Chg Fwd Diagnoses Anxiety and depression F41.9; F32.A Suicidal ideation R45.851 Partner relational problem Z63.0
[2024-08-31] MEDS: amitriptyline 25 mg Tablet 50 MG PO (20:35)
[2024-08-31 21:40] VITALS: BP 136/90; PULSE 98; RESP 18; TEMP 36.9; O2SAT 96
[2024-09-01 06:00] VITALS: BP 122/83; PULSE 90; RESP 18; TEMP 36.8; O2SAT 95
[2024-09-01] MEDS: pantoprazole DR 40 mg Tablet PO (08:49)
[2024-09-01] MEDS: gabapentin 300 mg Capsule PO (08:49)
[2024-09-01] MEDS: sertraline 50 mg Tablet PO (08:49)
[2024-09-01] MEDS: acetaminophen 325 mg Tablet 650 MG PO (08:49)
[2024-09-01] MEDS: losartan 50 mg Tablet PO (08:49)
--- NOTE | 2024-09-01 11:25 | DCPLANNER ---
IMM completed 09/01/2024 @ 1118 and pt was given a copy of rights.
[2024-09-01 14:00] VITALS: BP 108/65; PULSE 91; RESP 18; TEMP 36.8
[2024-09-01 14:16] VITALS: BP 122/83; PULSE 90; RESP 18; TEMP 36.8; O2SAT 95
== END 2024-09-01 15:03 | disposition home or self-care (01) | DRG 881 ==
LOC: ER 21:01 → NP 21:15
PROVIDERS: Admitting Provider Psychiatry & Neurology Psychiatry; Emergency Provider Emergency Medicine; PCP Family Medicine; Visit Provider Psychiatry & Neurology Psychiatry
DX: F32.A Depression, unspecified (principal); R45.851 Suicidal ideations; E66.9 Obesity, unspecified; F41.9 Anxiety disorder, unspecified; I10 Essential (primary) hypertension; M19.90 Unspecified osteoarthritis, unspecified site; M79.7 Fibromyalgia; R00.0 Tachycardia, unspecified; Z68.28 Body mass index [BMI] 28.0-28.9, adult; Z63.0 Problems in relationship with spouse or partner; Z86.73 Personal history of transient ischemic attack (TIA), and cerebral infarction without residual deficits; Z87.891 Personal history of nicotine dependence
CPT/HCPCS: 36415; 80053; 80306; 80307; 81001; 81025; 84443; 85025; 93005; 97165; 99285; J9999; Q0162